=== PATIENT | female | born 1965 | race Caucasian/White ===

== ENCOUNTER → 2017-02-09 | Outpatient (CLI) | payer BC ==
--- NOTE | 2017-02-09 11:03 | MM ---
Reason for exam: clinical finding. Last mammogram was performed 1 year and 1 month ago. History: Patient is postmenopausal and is nulliparous. Family history of breast cancer in paternal grandmother and breast cancer in maternal aunt. Took hormonal contraceptives for 14 years. Indicated problem(s): pain in the left breast. Physical Findings: Nurse did not find any significant physical abnormalities on exam. MG Diagnostic Mammo w CAD NATA Bilateral CC, MLO, and XCCL view(s) were taken. Prior study comparison: January 22, 2016, bilateral MG screening mammo w CAD. January 15, 2015, bilateral MG screening mammo w CAD. The breast tissue is heterogeneously dense. This may lower the sensitivity of mammography. Finding: There are typically benign round calcifications in both breasts. There is no discrete abnormality. These results were verbally communicated with the patient and result sheet given to the patient on 02/09/17. ASSESSMENT: Benign, BI-RAD 2 RECOMMENDATION: Routine screening mammogram of both breasts in 1 year.
== END | disposition home or self-care (01) ==
LOC: RADMAMWWP 08:08
PROVIDERS: ATTEND Obstetrics & Gynecology
DX: N64.4 Mastodynia (principal); N63.0 Unspecified lump in unspecified breast

== ENCOUNTER → 2017-11-17 | Day surgery (SDC) | payer BC ==
[2017-11-15 11:37] VITALS: BMI 32.1
[~2017-11-17] MED LIST: LACTATED RINGERS 1,000 ML IV SCH; LIDOCAINE 1% 20 ML VIAL (10MG/ML) FOR IV START INTRADERMA PRN; LIDOCAINE 1% INJ 10MG/ML (20 ML MDV) ONE; PROPOFOL 10 MG/ML 20 ML VIAL IV ONE
[2017-11-17 09:27] VITALS: RESP 16; TEMP 97.6
--- NOTE | 2017-11-17 10:24 | P.PCN ---
Date of Procedure: 11/17/17 Procedure(s) Performed: BRIEF HISTORY: Patient is a 52-year-old pleasant white female scheduled for an elective colonoscopy as a part of screening for colorectal neoplasia. PROCEDURE PERFORMED: Colonoscopy. PREOPERATIVE DIAGNOSIS: Screening for colon cancer. IV sedation per Anesthesia. PROCEDURE: After informed consent was obtained, the patient, was brought into the endoscopy unit. IV sedation was administered by Anesthesia under continuous monitoring. Digital rectal examination was normal. Initially the Olympus CF- 160 flexible video colonoscope was then inserted in the rectum, gradually advanced into the cecum without any difficulty. Careful examination was performed as the scope was gradually being withdrawn. Ileocecal valve and the appendiceal orifice were visualized and appeared normal. Prep was excellent. Mucosa of the cecum, ascending colon, transverse colon, descending colon, sigmoid colon, and rectum appeared normal. Retroflexion was performed in the rectum and no lesions were seen. The patient tolerated the procedure well. IMPRESSION: Normal-appearing colon from rectum to cecum with no evidence of colorectal neoplasia . RECOMMENDATIONS: Findings of this examination were discussed with the patient as well as a family. She was advised to have a repeat screening colonoscopy in 10 years.
[2017-11-17 10:50] VITALS: BP 114/75; PULSE 49
== END ==
LOC: ORWHC2ENDO 08:46
PROVIDERS: ATTEND Internal Medicine Gastroenterology
DX: Z12.11 Encounter for screening for malignant neoplasm of colon (principal)
CPT/HCPCS: J2001; J2704; G0121

== ENCOUNTER → 2018-04-11 | Outpatient (CLI) | payer BC ==
--- NOTE | 2018-04-11 09:06 | BD ---
EXAMINATION TYPE: Axial Bone Density DATE OF EXAM: 04/11/2018 COMPARISON: NONE CLINICAL HISTORY: Known osteopenia. Z78.0 and M85.80 Height: 67 Weight: 224.8 FRAX RISK QUESTIONS: Alcohol (3 or more units per day): no Family History (Parent hip fracture): no Glucocorticoids (More than 3mos): no (Ex: prednisone, prednisolone, methylprednisolone, dexamethasone, and hydrocortisone). History of Fracture in Adulthood: yes Secondary Osteoporosis: 1. Type 1 Diabetes: no 2. Hyperthyroidism: no 3. Menopause before 45: yes 4. Malnutrition: no 5. Chronic liver disease: no Rheumatoid Arthritis: no Current Tobacco Use: no RISK FACTORS HISTORY OF: History of Wrist Fracture: right wrist When: 2006 Family History of Osteoporosis: no Active: yes Diet low in dairy products/other sources of calcium: no Postmenopausal woman: age 32 Lost more than 2 inches in height since high school: no MEDICATIONS: vit d EXAM MEASUREMENTS: Bone mineral densitometry was performed using the [employer] System. Bone mineral density as measured about the Lumbar spine is: ----- L1-L4(G/cm2): 0.797 T Score Values are as follows: ----- L2: -3.5 ----- L3: -2.9 ----- L4: -3.4 ----- L1-L4: -3.2 Bone mineral density : baseline Bone mineral density about the R hip (g/cm2): 0.873 Bone mineral density about the L hip (g/cm2): 0.868 T Score values are as follows: -----R Neck: -1.2 -----L Neck: -1.2 -----R Total: -1.7 -----L Total: -1.6 Bone mineral density : baseline IMPRESSION: Osteoporosis (T Score less than -2.5) with regards to the lumbar spine. There is increased fracture risk and therapy is usually indicated based on age. Re-Screen 1-2 years. NOTE: T-SCORE=SD OF THE YOUNG ADULT MEAN.
--- NOTE | 2018-04-14 08:06 | MM ---
Reason for exam: screening (asymptomatic). Last mammogram was performed 1 year and 2 months ago. History: Patient is postmenopausal and is nulliparous. Family history of breast cancer in paternal grandmother and breast cancer in maternal aunt. Took hormonal contraceptives for 14 years. MG Screening Mammo w CAD Bilateral CC and MLO view(s) were taken. Prior study comparison: February 09, 2017, bilateral MG diagnostic mammo w CAD NATA. January 22, 2016, bilateral MG screening mammo w CAD. The breast tissue is heterogeneously dense. This may lower the sensitivity of mammography. There is benign-appearing round bilateral breast calcifications. No discrete abnormality. ASSESSMENT: Negative, BI-RAD 1 RECOMMENDATION: Routine screening mammogram of both breasts in 1 year.
== END | disposition home or self-care (01) ==
LOC: RADMAMWWP 06:41
PROVIDERS: ATTEND Obstetrics & Gynecology
DX: Z12.31 Encounter for screening mammogram for malignant neoplasm of breast (principal); M81.0 Age-related osteoporosis without current pathological fracture; Z78.0 Asymptomatic menopausal state
CPT/HCPCS: 77067; 77080

== ENCOUNTER → 2019-04-12 | Outpatient (CLI) | payer BC ==
--- NOTE | 2019-04-12 13:20 | MM ---
Reason for exam: screening (asymptomatic). Last mammogram was performed 1 year ago. History: Patient is postmenopausal and is nulliparous. Family history of breast cancer in paternal grandmother at age 50 and breast cancer in maternal aunt at age 50. Took hormonal contraceptives for 14 years. Physical Findings: A clinical breast exam by your physician is recommended on an annual basis and results should be correlated with mammographic findings. MG Screening Mammo w CAD Bilateral CC and MLO view(s) were taken. Prior study comparison: April 11, 2018, bilateral MG screening mammo w CAD. February 09, 2017, bilateral MG diagnostic mammo w CAD NATA. The breast tissue is heterogeneously dense. This may lower the sensitivity of mammography. There are benign appearing round calcifications bilaterally. Asymmetric breast tissue left medial half. There is no discrete abnormality. ASSESSMENT: Benign, BI-RAD 2 RECOMMENDATION: Routine screening mammogram of both breasts in 1 year.
== END | disposition home or self-care (01) ==
LOC: RADMAMWWP 07:15
PROVIDERS: ATTEND Obstetrics & Gynecology
DX: Z12.31 Encounter for screening mammogram for malignant neoplasm of breast (principal); Z80.3 Family history of malignant neoplasm of breast
CPT/HCPCS: 77067

== ENCOUNTER → 2020-06-23 | Outpatient (CLI) | payer BC ==
--- NOTE | 2020-06-23 16:08 | BD ---
EXAMINATION TYPE: Axial Bone Density DATE OF EXAM: 06/23/2020 COMPARISON: 04.11.2018 CLINICAL HISTORY: 54 YR OLD FEMALE......ICD-10 CODE: M81.0 Height: 65.2 Weight: 242 FRAX RISK QUESTIONS: History of Fracture in Adulthood: YES Secondary Osteoporosis: YES 3. Menopause before 45: YES RISK FACTORS HISTORY OF: LT FOOT AND TOES BROKEN AN ADULT History of Wrist Fracture: RT WRIST FX AN ADULT Postmenopausal woman: NO MENSES FROM , Lost more than 2 inches in height since high school: YES Hyperparathyroidism: NO Adrenal Insufficiency: NO MEDICATIONS: Osteoporosis Medications: BONIVA MONTHLY...FOR ABOUT 2 YRS, Additional Medications: VIT D WEEKLY HIGH DOSE, Additional History: OSTEOPOROSIS EXAM MEASUREMENTS: Bone mineral densitometry was performed using the [employer] System. Bone mineral density as measured about the Lumbar spine is: ----- L1-L4(G/cm2): 0.929 T Score Values are as follows: ----- L1: -2.3 ----- L2: -2.3 ----- L3: -1.7 ----- L4: -2.2 ----- L1-L4: -2.1 Bone mineral density has: Increased 17.4% since study of: 04.11.2018 Bone mineral density about the R hip (g/cm2): 0.852 Bone mineral density about the L hip (g/cm2): 0.838 T Score values are as follows: -----R Neck: -0.9 -----L Neck: -1.4 -----R Total: -1.3 -----L Total: -1.3 Bone mineral density has: Increased 6.2% since study of: 04.11.2018 FRAX%s: THERE IS A 9.0% CHANCE FOR A MAJOR OSTEOPOROTIC FX AND A 0.7% FOR HIP.....PROBABILITY FOR FX IN 10 YRS TIME IMPRESSION: Osteopenia (T Score between -2.5 and -1). There is slightly increased risk of fracture and the patient may be considered for treatment. Re-Screen 2-5 years. NOTE: T-SCORE=SD OF THE YOUNG ADULT MEAN.
--- NOTE | 2020-06-24 10:15 | MM ---
Reason for exam: screening (asymptomatic). Last mammogram was performed 1 year and 2 months ago. History: Patient is postmenopausal and is nulliparous. Family history of breast cancer in paternal grandmother at age 50 and breast cancer in maternal aunt at age 50. Took hormonal contraceptives for 14 years. Physical Findings: A clinical breast exam by your physician is recommended on an annual basis and results should be correlated with mammographic findings. MG Screening Mammo w CAD Bilateral CC and MLO view(s) were taken. Prior study comparison: April 12, 2019, bilateral MG screening mammo w CAD. April 11, 2018, bilateral MG screening mammo w CAD. The breast tissue is heterogeneously dense. This may lower the sensitivity of mammography. There is no discrete abnormality. No significant changes when compared with prior studies. ASSESSMENT: Negative, BI-RAD 1 RECOMMENDATION: Routine screening mammogram of both breasts in 1 year.
== END ==
LOC: RADMAMWWP 07:32
PROVIDERS: ATTEND Obstetrics & Gynecology
DX: Z12.31 Encounter for screening mammogram for malignant neoplasm of breast (principal); M85.89 Other specified disorders of bone density and structure, multiple sites; Z78.0 Asymptomatic menopausal state; Z80.3 Family history of malignant neoplasm of breast
CPT/HCPCS: 77067; 77080

== ENCOUNTER → 2021-07-05 | Outpatient (CLI) | payer BC ==
--- NOTE | 2021-07-06 11:58 | MM ---
Reason for exam: screening (asymptomatic). Last mammogram was performed 1 year ago. History: Patient is postmenopausal and is nulliparous. Family history of breast cancer in paternal grandmother at age 50 and breast cancer in maternal aunt at age 50. Took hormonal contraceptives for 14 years. Physical Findings: A clinical breast exam by your physician is recommended on an annual basis and results should be correlated with mammographic findings. MG 3D Screening Mammo W/Cad Bilateral CC and MLO view(s) were taken. Prior study comparison: June 23, 2020, bilateral MG screening mammo w CAD. April 12, 2019, bilateral MG screening mammo w CAD. The breast tissue is heterogeneously dense. This may lower the sensitivity of mammography. Benign appearing bilateral calcifications. No significant changes when compared with prior studies. ASSESSMENT: Benign, BI-RAD 2 RECOMMENDATION: Routine screening mammogram of both breasts in 1 year.
== END | disposition home or self-care (01) ==
LOC: RADMAMWWP 07:22
PROVIDERS: ATTEND Obstetrics & Gynecology
DX: Z12.31 Encounter for screening mammogram for malignant neoplasm of breast (principal); Z80.3 Family history of malignant neoplasm of breast; Z78.0 Asymptomatic menopausal state
CPT/HCPCS: 77063; 77067

== ENCOUNTER → 2022-10-14 | Outpatient (CLI) | payer BC ==
--- NOTE | 2022-10-17 08:46 | MM ---
Reason for Exam: Screening (asymptomatic). Last mammogram was performed 1 year(s) and 3 month(s) ago. Patient History: Menarche at age 18. Patient has no children. Postmenopausal. Patient used Hormonal Contraceptives for 14 years. Paternal grandmother had breast cancer, age 50. Maternal aunt had breast cancer, age 50. Risk Values: Maria Esther 5 year model risk: 1.2%. NCI Lifetime model risk: 8.3%. Prior Study Comparison: 04/12/2019 Bilateral Screening Mammogram, [facility]. 06/23/2020 Bilateral Screening Mammogram, [facility]. 07/05/2021 Bilateral Screening Mammogram, [facility]. Tissue Density: The breast tissue is heterogeneously dense. This may lower the sensitivity of mammography. Findings: Analyzed By CAD. There is no suspicious group of microcalcifications or new suspicious mass in either breast. Overall Assessment: Negative, BI-RAD 1 Management: Screening Mammogram of both breasts in [address] [facility] will attempt to contact patient to return for supplemental views and ultrasound if indicated. Patient should continue monthly self-breast exams. A clinical breast exam by your physician is recommended on an annual basis. This exam should not preclude additional follow-up of suspicious palpable abnormalities. Note on Maria Esther scores and lifetime risk: 1. A Maria Esther score greater than 3% is considered moderate risk. If this is the case, consider specialist referral to assess eligibility for a risk reducing agent. 2. If overall lifetime risk for the development of breast cancer is 20% or higher, the patient may qualify for future screening with alternating mammogram and breast MRI. Electronically signed and approved by: Yordy Foster DO
== END | disposition home or self-care (01) ==
LOC: RADMAMWWP 06:48
PROVIDERS: ATTEND Obstetrics & Gynecology
DX: Z12.31 Encounter for screening mammogram for malignant neoplasm of breast (principal); Z78.0 Asymptomatic menopausal state; Z80.3 Family history of malignant neoplasm of breast
CPT/HCPCS: 77063; 77067

== ENCOUNTER → 2023-08-23 | Outpatient (CLI) | payer BC ==
--- NOTE | 2023-08-24 05:05 | CT ---
EXAMINATION TYPE: CT sinus wo con DATE OF EXAM: 08/23/2023 COMPARISON: None. HISTORY: Chronic sinusitis. CT DLP: 538.6 mGycm. Automated Exposure Control for Dose Reduction was Utilized. TECHNIQUE: CT scan of the sinuses is performed without contrast, axial images are obtained, coronal r eformatted images are also reviewed. FINDINGS: The paranasal sinuses including the frontal, ethmoid, sphenoid, and maxillary sinuses bila terally are well-aerated without abnormal opacification or suspicious air-fluid levels. The ostiomea vashti complex is patent bilaterally on the coronal images. Visualized portion of mastoid air cells show no abnormal opacification. The globes are intact bilate rally. IMPRESSION: The sinuses are clear and the ostiomeatal complex is patent bilaterally.
== END | disposition home or self-care (01) ==
LOC: RADCTMAIN 16:31
PROVIDERS: ATTEND Otolaryngology
DX: J32.9 Chronic sinusitis, unspecified (principal)
CPT/HCPCS: 70486

== ENCOUNTER → 2023-10-19 | Outpatient (CLI) | payer BC ==
--- NOTE | 2023-10-22 15:47 | MM ---
Reason for Exam: Screening (asymptomatic). Last screening mammogram was performed 12 month(s) ago. Patient History: Menarche at age 18. Patient has no children. Postmenopausal. Patient used Hormonal Contraceptives for 14 years. Paternal grandmother had breast cancer, age 50. Maternal aunt had breast cancer, age 50. Risk Values: Maria Esther 5 year model risk: 1.2%. NCI Lifetime model risk: 8.1%. Prior Study Comparison: 06/23/2020 Bilateral Screening Mammogram, [facility]. 07/05/2021 Bilateral Screening Mammogram, [facility]. 10/14/2022 Bilateral MG 3D screening mammo w/cad, [facility]. Tissue Density: The breasts are heterogeneously dense, which may obscure small masses. Findings: Analyzed By CAD. The pattern is symmetrical. No significant interval change. No suspicious groups of microcalcifications, spiculated or lobular masses, architectural distortion or other secondary signs of malignancy are mammographically apparent. Overall Assessment: Benign, BI-RAD 2 Management: Screening Mammogram of both breasts in 1 year. A negative mammogram report should not preclude additional follow up of suspicious palpable abnormalities. Patient should continue monthly self breast exam. A clinical breast exam by your physician is recommended on an annual basis and results should be correlated with mammographic findings. Note on Maria Esther scores and lifetime risk: 1. A Maria Esther score greater than 3% is considered moderate risk. If this is the case, consider specialist referral to assess eligibility for a risk reducing agent. 2. If overall lifetime risk for the development of breast cancer is 20% or higher, the patient may qualify for future screening with alternating mammogram and breast MRI. Electronically signed and approved by: Goldy Stroud D.O. Radiologis
== END | disposition home or self-care (01) ==
LOC: RADMAMWWP 06:51
PROVIDERS: ATTEND Obstetrics & Gynecology
DX: Z12.31 Encounter for screening mammogram for malignant neoplasm of breast (principal); R92.333 Mammographic heterogeneous density, bilateral breasts; Z78.0 Asymptomatic menopausal state; Z80.3 Family history of malignant neoplasm of breast
CPT/HCPCS: 77063; 77067

== ENCOUNTER 2023-10-22 11:43 | Emergency (ER) | payer BC ==
[2023-10-22 11:46] VITALS: RESP 18
--- NOTE | 2023-10-22 12:31 | ED ---
Eye Problem HPI - General Chief complaint: Eye Problems Stated complaint: R eye issue Time Seen by Provider: 10/22/23 12:29 Source: patient, RN notes reviewed Mode of arrival: ambulatory Limitations: no limitations - History of Present Illness Initial comments: 58-year-old female presented to the ER with a chief complaint of right eye visual defects. Patient states she went for a walk this morning and upon returning she started to notice a bright light and a ring formation around her right eye. She describes it consuming about three fourths of her eye with occasionally circumferential. She denies any injuries or traumas. Denies any visual field defects. Denies any double blurry vision. Denies any headache, nausea, vomiting, weakness. Patient does report a history of ocular migraines but states the visual defects are currently different. Patient denies any other complaints at this time. - Related Data Home Medications Medication Instructions Recorded Confirmed Ergocalciferol (Vitamin D2) 50,000 unit PO Q7D 11/15/17 11/17/17 [Vitamin D2] Allergies Allergy/AdvReac Type Severity Reaction Status Date / Time No Known Allergies Allergy Verified 10/22/23 11:46 Review of Systems ROS Statement: Those systems with pertinent positive or pertinent negative responses have been documented in the HPI. ROS Other: All systems not noted in ROS Statement are negative. Past Medical History Past Medical History: No Reported History History of Any Multi-Drug Resistant Organisms: None Reported Past Surgical History: Cholecystectomy, Tonsillectomy Additional Past Surgical History / Comment(s): laparoscopic exam, reduction of fx. wrist Past Anesthesia/Blood Transfusion Reactions: No Reported Reaction Smoking Status: Never smoker Past Alcohol Use History: None Reported Past Drug Use History: None Reported - Past Family History Father Family Medical History: Cancer Mother Family Medical History: Deep Vein Thrombosis (DVT), Pulmonary Embolus General Exam Limitations: no limitations General appearance: alert, in no apparent distress Head exam: Present: atraumatic, normocephalic, normal inspection Eye exam: Present: normal appearance, PERRL, EOMI, other (Cornea clear). Absent : scleral icterus, conjunctival injection, periorbital swelling Pupils: Present: normal accommodation (5 mm bilaterally.), other (Ultrasound of retina negative.) ENT exam: Present: normal exam, mucous membranes moist Respiratory exam: Present: normal lung sounds bilaterally. Absent: respiratory distress, wheezes, rales, rhonchi, stridor Cardiovascular Exam: Present: regular rate, normal rhythm, normal heart sounds. Absent: systolic murmur, diastolic murmur, rubs, gallop, clicks Skin exam: Present: warm, dry, intact, normal color. Absent: rash Course Vital Signs 10/22/23 10/22/23 11:44 12:35 Temperature 97.4 F L 97.9 F Pulse Rate 82 61 Respiratory 18 18 Rate Blood Pressure 151/79 129/74 O2 Sat by Pulse 97 99 Oximetry Medical Decision Making - Medical Decision Making Was pt. sent in by a medical professional or institution (, [facility], [facility] [employer], urgent care, hospital, or halfway...) When possible be specific @ -No Did you speak to anyone other than the patient for history (EMS, parent, family, police, friend...)? What history was obtained from this source @ -No Did you review nursing and triage notes (agree or disagree)? Why? @ -I reviewed and agree with nursing and triage notes Were old charts reviewed (outside hosp., previous admission, EMS record, old EKG, old radiological studies, urgent care reports/EKG's, halfway records)? Report findings @ -No old charts were reviewed Differential Diagnosis (chest pain, altered mental status, abdominal pain women, abdominal pain men, vaginal bleeding, weakness, fever, dyspnea, syncope, headache, dizziness, GI bleed, back pain, seizure, CVA, palpatations, mental health, musculoskeletal)? @ -Corneal abrasion, ocular foreign body, hyphema, conjunctivitis, globe rupture, acute angle-closure glaucoma this list is not meant to be all-inclusive EKG interpreted by me (3pts min.). @ -None X-rays interpreted by me (1pt min.). @ -None done CT interpreted by me (1pt min.). @ -None done U/S interpreted by me (1pt. min.). @ -None done What testing was considered but not performed or refused? (CT, X-rays, U/S, labs)? Why? @ -None What meds were considered but not given or refused? Why? @ -None Did you discuss the management of the patient with other professionals (professionals i.e. [facility], [employer], lab, RT, psych nurse, geriatric social work professor, bellman, teacher, conservation officer, case loader operator)? Give summary @ -No Was smoking cessation discussed for >3mins.? @ -No Was critical care preformed (if so, how long)? @ -No Were there social determinants of health that impacted care today? How? (Homelessness, low income, unemployed, alcoholism, drug addiction, transportation, low edu. Level, literacy, decrease access to med. care, senior living, rehab)? @ -No Was there de-escalation of care discussed even if they declined (Discuss DNR or withdrawal of care, Hospice)? DNR status @ -No What co-morbidities impacted this encounter? (DM, HTN, Smoking, COPD, CAD, Cancer, CVA, ARF, Chemo, Hep., AIDS, mental health diagnosis, sleep apnea, morbid obesity)? @ -None Was patient admitted / discharged? Hospital course, mention meds given and route, prescriptions, significant lab abnormalities, going to OR and other pertinent info. @ -Discharge. 58-year-old female presented to the ER with a chief complaint of a right eye halo. History and physical exam completed. Vitals stable. Patient in no signs of acute distress and nontoxic-appearing. Bilateral pupils equal round and reactive with intact extraocular motions. No conjunctival injection. No drainage. Lid inversion negative for foreign body. Bedside ultrasound negative for evidence of retinal detachment. Visual acuity right eye 20/50, left eye 20/40, bilateral 20/25. Symptoms believed to be from vitreous in pat ure as patient denying any other complaints and exam negative. I advised close follow-up with [facility], referrals given. Strict return parameters discussed. Patient stable for discharge and discharged stable condition. Patient verbally expressed understanding and agreement with care plan. Case discussed with ED attending, Dr. Silva. Undiagnosed new problem with uncertain prognosis? @ -No Drug Therapy requiring intensive monitoring for toxicity (Heparin, Nitro, Insulin, Cardizem)? @ -No Were any procedures done? @ -No Diagnosis/symptom? @ -Visual floaters Acute, or Chronic, or Acute on Chronic? @ -Acute Uncomplicated (without systemic symptoms) or Complicated (systemic symptoms)? @ -Uncomplicated Side effects of treatment? @ -No Exacerbation, Progression, or Severe Exacerbation? @ -No Poses a threat to life or bodily function? How? (Chest pain, [place], [place], pneumonia, PE, COPD, DKA, ARF, appy, cholecystitis, CVA, Diverticulitis, Homicidal, Suicidal, threat to staff... and all critical care pts) @ -No Disposition Clinical Impression: Visual floaters Disposition: HOME SELF-CARE Condition: Stable Additional Instructions: Please follow-up with [facility] architect soon as possible. Return to the ER for any new or worsening symptoms. Is patient prescribed a controlled substance at d/c from ED?: No Referrals: Jess Mcgee DO [Primary Care Provider] - 1-2 days Manjinder Diane MD [STAFF PHYSICIAN] - 1-2 days Genaro Irby MD [STAFF PHYSICIAN] - 1-2 days Alejandro Deleon MD [STAFF PHYSICIAN] - 1-2 days Preston Sanchez DO [Doctor of Osteopathic Medicine] - 1-2 days Time of Disposition: 12:31
[2023-10-22 12:37] VITALS: BP 129/74; PULSE 61; TEMP 97.9
== END 2023-10-22 12:48 | disposition home or self-care (01) ==
LOC: EC 11:43
DX: H53.451 Other localized visual field defect, right eye (principal); Z90.49 Acquired absence of other specified parts of digestive tract
CPT/HCPCS: 99283